=== PATIENT | male | born 1980 | race Asian ===

== ENCOUNTER 2018-03-02 07:06 | Day surgery (SDC) | payer BC ==
[2018-03-02] MEDS ORDERED: Lidocaine 2% 5 ML SDV ONE (07:12)
[2018-03-02] MEDS ORDERED: Propofol 200 MG/20 ML SDV ONE ×3 (07:13→08:24)
[2018-03-02] MEDS ORDERED: fentaNYL 100 MCG/2 ML SDV ONE (07:13)
[2018-03-02] MEDS ORDERED: Midazolam 1 MG/ML 2 ML SDV ONE (07:13)
[2018-03-02] MEDS ORDERED: Sodium Chloride 0.9% 20 ML ONE (07:22)
[2018-03-02] MEDS ORDERED: ceFAZolin 1 GM Vial ONE (07:22)
--- NOTE | 2018-03-02 07:30 | PCM.PREANE ---
Preanesthetic Assessment - Anesthesia/Transfusion/Family Hx Anesthesia History: Prior Anesthesia Without Reaction Family History of Anesthesia Reaction: No Transfusion History: No Prior Transfusion(s) - Review of Systems General: No Symptoms Pulmonary: No Symptoms Cardiovascular: No Symptoms Gastrointestinal: No Symptoms Neurological: No Symptoms Other: Reports: None - Physical Assessment NPO Status Date: 03/01/18 O2 Sat by Pulse Oximetry: 97 Respiratory Rate: 16 Vital Signs: Last Vital Signs Temp 36.7 C 03/02/18 07:19 Pulse 73 03/02/18 07:19 Resp 16 03/02/18 07:19 BP 121/74 03/02/18 07:19 Pulse Ox 97 03/02/18 07:19 Height: 1.7 m Weight: 95.254 kg ASA Class: 6 Brain Organ Donor Airway Class: Mallampati = 1 Dentition: Reports: Normal Dentition ROM/Head Extension: Full Lungs: Clear to Auscultation, Normal Respiratory Effort Cardiovascular: Regular Rate, Regular Rhythm - Allergies Allergies/Adverse Reactions: Allergies Allergy/AdvReac Type Severity Reaction Status Date / Time No Known Allergies Allergy Verified 02/26/18 13:36 - Anesthesia Plan Pre-Op Medication Ordered: None - Acknowledgements Anesthesia Type Planned: MAC Pt an Appropriate Candidate for the Planned Anesthesia: Yes Alternatives and Risks of Anesthesia Discussed w Pt/Guardian: Yes Pt/Guardian Understands and Agrees with Anesthesia Plan: Yes PreAnesthesia Questionnaire HEENT History: Reports: Hard of Hearing Other HEENT History: does not wear hearing aide Endocrine/Metabolic History: Reports: Obesity/BMI 30+ - Past Surgical History GI Surgical History: Reports: Appendectomy - SUBSTANCE USE Smoking Status *Q: Never Smoker Tobacco Use Within Last Twelve Months: No Recreational Drug Use History: No - HOME MEDS Home Medications: Home Meds . [No Known Home Meds] 02/26/18 [History] - CURRENT (IN HOUSE) MEDS Current Meds: Current Medications Hydrocodone Bitart/Acetaminophen (Meacham 325-5 Mg) 1 tab PO Q4H PRN PRN Reason: Pain Bupivacaine HCl/Epinephrine Bitart (Marcaine 0.25%/Epinephrine 1:200,000) 10 ml INJECT ONETIME ONE Stop: 03/02/18 08:01 Cefazolin Sodium/Dextrose 2 gm (/ Premix) 50 mls @ 100 mls/hr IV ONETIME ONE Stop: 03/02/18 08:29 Lactated Ringer's (Ringers, Lactated) 1,000 mls @ 125 mls/hr IV ASDIRECTED ALY Last Admin: 03/02/18 07:23 Dose: 125 mls/hr Discontinued Medications Cefazolin Sodium (Ancef) Confirm Administered Dose 2 gm .ROUTE .STK-MED ONE Stop: 03/02/18 07:23 Fentanyl (Sublimaze) Confirm Administered Dose 100 mcg .ROUTE .STK-MED ONE Stop: 03/02/18 07:14 Sodium Chloride (Normal Saline) Confirm Administered Dose 20 mls @ as directed .ROUTE .STK-MED ONE Stop: 03/02/18 07:23 Lidocaine (Xylocaine-Mpf 2%) Confirm Administered Dose 5 ml .ROUTE .STK-MED ONE Stop: 03/02/18 07:13 Midazolam HCl (Versed 1 Mg/Ml) Confirm Administered Dose 2 mg .ROUTE .STK-MED ONE Stop: 03/02/18 07:14 Propofol (Diprivan 20 Ml) Confirm Administered Dose 400 mg .ROUTE .STK-MED ONE Stop: 03/02/18 07:14 Propofol (Diprivan 20 Ml) Confirm Administered Dose 200 mg .ROUTE .STK-MED ONE Stop: 03/02/18 07:22
[2018-03-02] MEDS ORDERED: Lactated Ringers 1,000 ML IV SCH (08:00)
[2018-03-02] MEDS ORDERED: Acetaminophen/HYDROcodone 325-5 MG Tab PO PRN (08:00)
[2018-03-02] MEDS ORDERED: ceFAZolin 2 GM in Premix Bag 1 BAG IV ONE (08:00)
[2018-03-02] MEDS ORDERED: Bupivacaine 0.25%/EPINEPHrine 1:200,000 10 ML SDV INJECT ONE (08:00)
[2018-03-02] MEDS ORDERED: Bupivacaine 25%/EPINEPHrine/PF 30 ML ONE (08:05)
[2018-03-02] MEDS ORDERED: fentaNYL 250 MCG/5 ML SDV ONE (08:42)
[2018-03-02] MEDS ORDERED: Racepinephrine 2.25% 0.5 ML Neb Soln NEB ONE (09:32)
--- NOTE | 2018-03-02 10:31 | PCM.POSTAN ---
POST ANESTHESIA ASSESSMENT - MENTAL STATUS Mental Status: Alert, Oriented - RESPIRATORY Respiratory Status: Respiratory Rate WNL, Airway Patent, O2 Saturation Stable - CARDIOVASCULAR CV Status: Pulse Rate WNL, Blood Pressure Stable - GASTROINTESTINAL GI Status: No Symptoms - POST OP HYDRATION Hydration Status: Adequate & Stable
--- NOTE | 2018-03-02 10:32 | PCM48HPAN ---
Post Anesthesia Note - EVALUATION WITHIN 48HRS OF ANESTHETIC Vital Signs in Normal Range: Yes Patient Participated in Evaluation: Yes Respiratory Function Stable: Yes Airway Patent: Yes Cardiovascular Function Stable: Yes Hydration Status Stable: Yes Pain Control Satisfactory: Yes Nausea and Vomiting Control Satisfactory: Yes Mental Status Recovered: Yes Resp Rate: 14 - COMMENTS/OBSERVATIONS Free Text/Narrative:: discharged by pacu nurses prior to being seen my anesthesia provider
--- NOTE | 2018-03-02 10:40 | PCM.OPNOTE ---
- General Post-Op/Procedure Note Date of Surgery/Procedure: 03/02/18 Operative Procedure(s): right carpal tunnel relelase Pre Op Diagnosis: right carpal tunnel syndrome Post-Op Diagnosis: Same Anesthesia Technique: Local, MAC Primary Surgeon: Fanny Magaña Fiscal Assistant: Ale Kendall Complications: None Condition: Good Free Text/Narrative:: Intake & Output 03/01/18 03/02/18 03/02/18 23:59 07:59 15:59 Intake Total 950 Balance 950
--- NOTE | 2018-03-02 16:29 | OR ---
SURGEON: VEDA EDWARDS MD DATE OF PROCEDURE: 03/02/2018 PREOPERATIVE DIAGNOSIS: Right carpal tunnel syndrome. POSTOPERATIVE DIAGNOSIS: Right carpal tunnel syndrome. PROCEDURE: Right carpal tunnel release. STRIPPER AND PRINTER: RYAN Sainz. ANESTHESIA: Local MAC. INDICATIONS: Mr. Torres is a 37-year-old gentleman, seen today in evaluation for right carpal tunnel syndrome. He has failed conservative management. Risks and benefits of surgical intervention were discussed and he was in agreement to proceed. Risks were including, but not limited to, bleeding, infection, damage to underlying or overlying structures, possible need for future interventions, possible scarring. PROCEDURE IN DETAIL: After informed consent was obtained and placed on the chart, the patient was brought to the operating theater in a supine position. After adequate local MAC anesthesia was obtained, the area was prepped and draped, a time-out was completed to confirm side and site. Attention was then paid to the dissection of the transverse carpal ligament and the arm was exsanguinated and tourniquet was insufflated to 200 mmHg. Dissection was carried through the skin and subcutaneous tissues until breach of the ligament. Direct visualization was used then to dissect with Littler scissors distally and proximally. Once adequately released, the wound was then irrigated and closed using 5-0 nylon stitch in a horizontal mattress and the tourniquet was desufflated. The wound was dressed with Xeroform fluffs and a Kerlix gauze dressing and a 2-inch Michael wrap. The patient tolerated this well. All counts and needles were correct at the end of the case. FOLLOWUP INSTRUCTIONS: The patient will see us in 10 to 14 days, sooner if any problems, questions, or concerns. TONY / NIEVES /[id number]
== END 2018-03-02 10:22 | disposition home or self-care (01) ==
LOC: MW.SDS 07:06
PROVIDERS: ATTEND Plastic Surgery
DX: G56.03 Carpal tunnel syndrome, bilateral upper limbs (principal); E66.9 Obesity, unspecified; Z68.32 Body mass index [BMI] 32.0-32.9, adult; Z87.891 Personal history of nicotine dependence
CPT/HCPCS: 64721; J0690; J2250; J2704; J3010; J7120

== ENCOUNTER 2019-11-09 15:42 | Emergency (ER) | payer BC ==
--- NOTE | 2019-11-09 16:30 | EDM.PDOC ---
ED HPI GENERAL MEDICAL PROBLEM - General Chief Complaint: Fever Stated Complaint: FEVER/COUGH Time Seen by Provider: 11/09/19 16:02 Source of Information: Reports: Patient History Limitations: Reports: No Limitations - History of Present Illness INITIAL COMMENTS - FREE TEXT/NARRATIVE: This 39-year-old male presents to the emergency room with a chief complaint of exposure to coronavirus and cough. Patient also states he has on and off fever. And is concerned he might of been exposed to the virus. Onset: Today Duration: Hour(s): Location: Reports: Chest Quality: Reports: Ache Severity: Mild Improves with: Reports: None Worsens with: Reports: None Context: Reports: Activity Associated Symptoms: Reports: No Other Symptoms Back Pain Score (Numeric/FACES): 8 - Related Data Allergies Allergy/AdvReac Type Severity Reaction Status Date / Time No Known Allergies Allergy Verified 02/26/18 13:36 Home Meds: Home Meds . [No Known Home Meds] 02/26/18 [History] Past Medical History HEENT History: Reports: Hard of Hearing Other HEENT History: does not wear hearing aide Endocrine/Metabolic History: Reports: Obesity/BMI 30+ - Past Surgical History GI Surgical History: Reports: Appendectomy Social & Family History - Tobacco Use Smoking Status *Q: Never Smoker - Caffeine Use Caffeine Use: Reports: Coffee, Energy Drinks, Soda - Recreational Drug Use Recreational Drug Use: No ED ROS GENERAL - Review of Systems Review Of Systems: See Below Constitutional: Reports: No Symptoms, Fever, Chills HEENT: Reports: No Symptoms Respiratory: Reports: No Symptoms, Cough Cardiovascular: Reports: No Symptoms, Chest Pain Endocrine: Reports: No Symptoms GI/Abdominal: Reports: No Symptoms : Reports: No Symptoms Musculoskeletal: Reports: No Symptoms Skin: Reports: No Symptoms Neurological: Reports: No Symptoms Psychiatric: Reports: No Symptoms, Hallucinations Hematologic/Lymphatic: Reports: No Symptoms Immunologic: Reports: No Symptoms ED EXAM, GENERAL - Physical Exam Exam: See Below Exam Limited By: No Limitations General Appearance: Alert, WD/WN, No Apparent Distress Eye Exam: Bilateral Eye: Normal Fundi, Normal Inspection Nose: Normal Inspection, Normal Mucosa Throat/Mouth: Normal Inspection, Normal Lips, Normal Oropharynx Head: Atraumatic, Normocephalic Neck: Normal Inspection, Supple, Non-Tender Respiratory/Chest: No Respiratory Distress, Lungs Clear, No Accessory Muscle Use , Chest Non-Tender Cardiovascular: Normal Peripheral Pulses, Regular Rate, Rhythm, No JVD, No Murmur GI/Abdominal: Normal Bowel Sounds, Soft, No Distention, No Abnormal Bruit Rectal (Males) Exam: Deferred Back Exam: Normal Inspection, Full Range of Motion Extremities: Normal Inspection, Normal Range of Motion Neurological: Alert, Oriented Psychiatric: Normal Affect, Normal Mood Skin Exam: Warm, Dry, Intact, Normal Color Lymphatic: No Adenopathy Course - Vital Signs Last Recorded V/S: Last Vital Signs Temp 97.7 F 11/09/19 15:51 Pulse 97 11/09/19 15:51 Resp 15 11/09/19 15:51 BP 130/89 11/09/19 15:51 Pulse Ox 97 11/09/19 15:51 - Orders/Labs/Meds Orders: Active Orders 24 hr Category Date Time Status CORONAVIRUS COVID-19 PCR PHL [MREF] Stat Lab 11/09/19 16:22 Ordered Departure - Departure Time of Disposition: 16:31 Disposition: Home, Self-Care 01 Condition: Good Clinical Impression: URI (upper respiratory infection) - Discharge Information Instructions: Upper Respiratory Infection, Adult, [id number] Referrals: PCP,None [Primary Care Provider] - Additional Instructions: 1. patient with several quarantine until results of test are obtained. Take Tylenol Motrin for fever III. Stay hydrated Sepsis Event Note - Evaluation Sepsis Screening Result: No Definite Risk - Focused Exam Vital Signs: Vital Signs Temp Pulse Resp BP Pulse Ox 11/09/19 15:51 97.7 F 97 15 130/89 97 Date Exam was Performed: 11/09/19 Time Exam was Performed: 16:24 - My Orders Last 24 Hours: My Active Orders 11/09/19 16:22 CORONAVIRUS COVID-19 PCR PHL [MREF] Stat - Assessment/Plan Last 24 Hours: My Active Orders 11/09/19 16:22 CORONAVIRUS COVID-19 PCR PHL [MREF] Stat
== END 2019-11-09 16:51 | disposition home or self-care (01) ==
LOC: MW.ED 15:42
DX: B34.2 Coronavirus infection, unspecified (principal); E66.9 Obesity, unspecified; Z68.29 Body mass index [BMI] 29.0-29.9, adult
CPT/HCPCS: 87804; 99283; U0002

== ENCOUNTER 2019-11-12 16:20 | Emergency (ER) | payer BC, OTHER ==
--- NOTE | 2019-11-12 17:56 | EDM.PDOC ---
ED HPI GENERAL MEDICAL PROBLEM - General Stated Complaint: RESPIRATORY HARD TIME BREATHING Time Seen by Provider: 11/12/19 17:51 Source of Information: Reports: Patient History Limitations: Reports: No Limitations - History of Present Illness INITIAL COMMENTS - FREE TEXT/NARRATIVE: 39-year-old gentleman who presents the emergency room with a chief complaint of pain on breathing. Patient states he is more short of breath than yesterday. Patient tested positive for COV 19 Onset: Today Duration: Day(s): Location: Reports: Chest Severity: Mild Worsens with: Reports: Breathing Associated Symptoms: Reports: Chest Pain Treatments ROCK CUTTER: Reports: Acetaminophen - Related Data Allergies Allergy/AdvReac Type Severity Reaction Status Date / Time No Known Allergies Allergy Verified 02/26/18 13:36 Home Meds: Home Meds . [No Known Home Meds] 02/26/18 [History] Past Medical History HEENT History: Reports: Hard of Hearing Other HEENT History: does not wear hearing aide Endocrine/Metabolic History: Reports: Obesity/BMI 30+ - Past Surgical History GI Surgical History: Reports: Appendectomy Social & Family History - Caffeine Use Caffeine Use: Reports: Coffee, Energy Drinks, Soda ED ROS GENERAL - Review of Systems Review Of Systems: See Below Constitutional: Reports: Fever, Chills HEENT: Reports: No Symptoms Respiratory: Reports: Shortness of Breath Cardiovascular: Reports: No Symptoms Endocrine: Reports: No Symptoms GI/Abdominal: Reports: No Symptoms : Reports: No Symptoms Musculoskeletal: Reports: No Symptoms Skin: Reports: No Symptoms Neurological: Reports: No Symptoms Psychiatric: Reports: No Symptoms Hematologic/Lymphatic: Reports: No Symptoms Immunologic: Reports: No Symptoms ED EXAM, GENERAL - Physical Exam Exam: See Below Exam Limited By: No Limitations General Appearance: Alert, WD/WN, No Apparent Distress, Anxious Eye Exam: Bilateral Eye: Normal Fundi, Normal Inspection Ears: Normal External Exam, Normal TMs Nose: Normal Inspection Throat/Mouth: Normal Inspection Head: Atraumatic, Normocephalic Neck: Normal Inspection Respiratory/Chest: No Respiratory Distress Cardiovascular: Normal Peripheral Pulses GI/Abdominal: Normal Bowel Sounds Extremities: Normal Inspection, Normal Range of Motion Neurological: Alert, Oriented, CN II-XII Intact Psychiatric: Normal Affect, Normal Mood, Anxious Skin Exam: Warm, Dry, Intact Lymphatic: No Adenopathy Course - Vital Signs Text/Narrative:: Patient was taken back to the emergency room immediately by myself. I will order to decrease the possible contact with the nursing staff. I discussed the case with the patient and examined him his O2 saturation was 98% he was having pain when he took a deep breath other than that he was within normal limits. Patient was very anxious. After I discussed the case with him he became less anxious and stated he was just scared. Patient's lungs were clear to auscultation O2 sat 98%. The patient was informed about his disease process and instructed wound to come back if he needed to come back to the emergency room. Other than that the patient will be discharged with Tylenol for pain and increase his fluids. Patient was excited about leaving and not want to wait for his discharge summary and will follow up with respiratory clinic Departure - Departure Time of Disposition: 17:56 Disposition: Eloped 07 Condition: Good Clinical Impression: Dyspnea on exertion - Discharge Information Instructions: Shortness of Breath, Adult, [id number] Referrals: PCP,None [Primary Care Provider] -
== END 2019-11-12 17:52 | disposition left against medical advice (07) ==
LOC: MW.ED 16:20
DX: B97.29 Other coronavirus as the cause of diseases classified elsewhere (principal); R06.09 Other forms of dyspnea; E66.9 Obesity, unspecified
CPT/HCPCS: 99282; 99284